=== PATIENT | female | born 1960 | race Caucasian/White ===

== ENCOUNTER 2023-07-06 09:43 | Outpatient (CLI) | payer BC, SELFPAY ==
--- NOTE | 2023-07-06 11:06 | W.ANESCHARGE ---
Anesthesia Charges Start Date/Time Anesthesia Start Date: 07/06/23 Anesthesia Start Time: 10:43 Stop Date/Time Anesthesia Stop Date: 07/06/23 Anesthesia Stop Time: 11:03
--- NOTE | 2023-07-06 11:29 | W.ANESCHARGE ---
Anesthesia Charges Start Date/Time Anesthesia Start Date: 07/06/23 Anesthesia Start Time: 10:43 Stop Date/Time Anesthesia Stop Date: 07/06/23 Anesthesia Stop Time: 11:03
== END 2023-07-06 09:44 | disposition home or self-care (01) ==
PROVIDERS: PCP Physician Assistant; Visit Provider Internal Medicine Gastroenterology
DX: R19.5 Other fecal abnormalities (principal)
CPT/HCPCS: 00811; 00812; 45378; J2704